=== PATIENT | male | born 1955 | race Caucasian/White ===

== ENCOUNTER 2016-09-25 16:56 | Emergency (ER) | payer BC, OTHER ==
[~2016-09-25] VITALS: Ht 165.1 cm; Wt 92.5 kg
[~2016-09-25 16:56] MED LIST: CIPR500T4 PO; FURO-109 PO; LACT20SO12 PO; PANT40TA4 PO; RIFA550T4 PO; SPIR50TA PO
[2016-09-25 17:01] VITALS: Ht 165.1 cm; Wt 92.5 kg
--- NOTE | 2016-09-25 18:50 | RADRPT ---
PROCEDURE: XR Chest. CLINICAL INDICATION: Abdominal pain. TECHNIQUE: Portable AP semi erect view of the chest was obtained. COMPARISON: None. FINDINGS: The cardiomediastinal silhouette is within normal limits. The lungs are clear. There is no evidenc e for pleural effusion, pneumothorax or pulmonary vascular congestion. The osseous structures are i ntact with no evidence for acute abnormality. No free air seen below the diaphragm RPTAT:HJJR IMPRESSION: No evidence for acute intrathoracic pathology. Physician Tyson Date Time Electronically viewed and signed by Ulices Esteban Physician on 09/25/2016 18:50 JR/
[2016-09-25 19:03] LABS: ADD SCAN DIFF NO
[2016-09-25 19:06] LABS: ABNORMAL IP MESSAGE 1; HEMATOCRIT 29.9 % (42.0-52.0); HEMOGLOBIN 10.5 g/dl (14.0-18.0); MEAN CORPUSCULAR HEMOGLOBIN 32.1 pg (29.0-33.0); MEAN CORPUSCULAR HGB CONC 35.1 g/dl (32.0-37.0); MEAN CORPUSCULAR VOLUME 91.4 fl (82.0-101.0); MEAN PLATELET VOLUME 12.5 fl (7.4-10.4); PLATELET COUNT 86 10^3/UL (140-415); RED BLOOD COUNT 3.27 10^6/ul (4.70-6.10); RED CELL DISTRIBUTION WIDTH 16.1 % (11.5-14.5); WHITE BLOOD COUNT 7.3 10^3/ul (4.8-10.8)
[2016-09-25 19:14] LABS: ALBUMIN 3.1 g/dl (3.3-4.9)
[2016-09-25 19:15] LABS: CHLORIDE 104 mmol/L (97-110); POTASSIUM 3.7 mmol/L (3.5-5.1); SODIUM 140 mmol/L (135-144)
[2016-09-25 19:16] LABS: INR 1.7; PROTIME 20.1 Sec (12.2-14.2); PT RATIO 1.6
[2016-09-25 19:17] LABS: ALBUMIN/GLOBULIN RATIO 0.81; ASPARTATE AMINO TRANSFERASE 221 IU/L (15-46); CARBON DIOXIDE 21 mmol/L (21-31); CREATININE 0.87 mg/dl (0.61-1.24); TOTAL PROTEIN 6.9 g/dl (6.1-8.1)
[2016-09-25 19:18] LABS: ALANINE AMINOTRANSFERASE 80 IU/L (13-69); ALKALINE PHOSPHATASE 205 IU/L (42-121); ANION GAP 19 (8-16); BLOOD UREA NITROGEN 10 mg/dl (7-20); CALCIUM 8.3 mg/dl (8.4-10.2); GLUCOSE 100 mg/dl (70-220)
[2016-09-25] MEDS ORDERED: LACTULOSE 30ML CUP PO ONE (19:30)
[2016-09-25 19:33] LABS: TROPONIN-I < 0.012 ng/ml (0.00-0.12)
[2016-09-25 19:38] LABS: ADD UMIC NO; URINE BILIRUBIN (Dip) NEGATIVE (NEGATIVE); URINE BLOOD (Dip) NEGATIVE (NEGATIVE); URINE COLOR LT. YELLOW (YELLOW); URINE GLUCOSE (Dip) NEGATIVE (NEGATIVE); URINE KETONES (Dip) NEGATIVE (NEGATIVE); URINE LEUKOCYTE ESTERASE (Dip) NEGATIVE (NEGATIVE); URINE NITRITE (Dip) NEGATIVE (NEGATIVE); URINE TOTAL PROTEIN (Dip) NEGATIVE (NEGATIVE); URINE UROBILINOGEN (Dip) 0.2 E.U./dL (0.1-1.0)
--- NOTE | 2016-09-25 19:46 | ERD ---
ER Documentation Chief Complaint Date/Time DATE: 09/25/16 TIME: 19:40 Chief Complaint ap with diarrhea x 2 weeks, hx cirrrhosis HPI 61-year-old man with a history of alcoholic cirrhosis and ascites presents with increasing abdominal distention. He's had intermittent loose stools as well but denies blood per rectum or melena. Symptoms present for about 2 weeks. He denies fevers or chills, no chest pain or shortness of breath, no vomiting, no headache or blurry vision. Patient admits to drinking alcohol today as he does every day. ROS All systems reviewed and are negative except as per history of present illness. Medications Home Meds Discontinued Scripts Spironolactone* (Aldactone*) 50 Mg Tab, 100 MG PO BID, #60 Prov:REGIDORMARK 07/10/14 Rifaximin* (Xifaxan*) 550 Mg Tablet, 550 MG PO BID, #60 Prov:REGIDORMARK 07/10/14 Pantoprazole (Protonix) 40 Mg Tabec, 40 MG PO DAILY@06, #30 Prov:REGIDORMARK 07/10/14 Lactulose* (Cephulac*) 20 Gm/30 Ml Soln, 10 GM PO Q12, #60 Prov:REGIDORMARK 07/10/14 Furosemide* (Lasix*) 40 Mg Tab, 40 MG PO DAILY, #30 Prov:REGIDOR,MARK 07/10/14 Ciprofloxacin Hcl* (Ciprofloxacin Hcl*) 500 Mg Tab, 500 MG PO BID@06,18, #10 Prov:REGAPRILRMARK 07/10/14 Allergies Allergies: Coded Allergies: No Known Allergy (Unverified , 09/25/16) PMhx/Soc Alcoholism, alcoholic cirrhosis, ascites, hypertension, CHF, history of pancreatitis History of Surgery: No Anesthesia Reaction: No Hx Neurological Disorder: No Hx Respiratory Disorders: No Hx Cardiac Disorders: Yes (HTN) Hx Psychiatric Problems: No Hx Miscellaneous Medical Probl: Yes (GERD, HTN, LE edema) Hx Alcohol Use: Yes (WEEKLY) Hx Substance Use: No Hx Tobacco Use: No Smoking Status: Never smoker FmHx Family History: No diabetes Physical Exam Vitals Vital Signs Date Time Temp Pulse Resp B/P Pulse Ox O2 Delivery O2 Flow Rate FiO2 09/25/16 18:30 98.1 89 18 118/66 100 Room Air 09/25/16 17:01 98.1 92 18 128/80 99 Physical Exam GENERAL: Well-developed, well-nourished, well-hydrated, in no apparent distress , looks nontoxic in appearance HEENT: Moist mucous membranes, pink conjunctiva, no cervical spine tenderness or step-off deformities, no goiter, no jaundice or icterus, extraocular movements intact without pain. No submandibular induration, and no pharyngeal erythema NEURO: Alert and oriented 3, cranial nerves II through XII intact bilaterally, pupils equal round reactive to light, no focal deficits or facial asymmetry, sensation intact distally Strength 5/5 in upper and lower extremities bilaterally CARDIAC: Regular rate and rhythm, no murmurs rubs or gallops LUNGS: Clear bilaterally no wheezing crackles or stridor ABDOMEN: Soft nontender, non-protuberant, nontender abdomen which does not appear or feel distended. No guarding or rigidity SKIN: Warm and dry to touch, no abrasions, contusions, or hematomas, no lacerations, no ecchymosis, no target lesions, and without ulcers EXTREMITIES: No clubbing cyanosis or edema, calves are bilaterally symmetrical, no Homans sign, no popliteal cord sign. Distal pulses equal and bilateral PSYCH: Normal affect without agitation or irritability Result Diagram: 09/25/16184909/25/161849 Results 24 hrs Laboratory Tests Test 09/25/16 18:50 White Blood Count 7.310^3/ul Red Blood Count 3.2710^6/ul Hemoglobin 10.5g/dl Hematocrit 29.9% Mean Corpuscular Volume 91.4fl Mean Corpuscular Hemoglobin 32.1pg Mean Corpuscular Hemoglobin Concent 35.1g/dl Red Cell Distribution Width 16.1% Platelet Count 8610^3/UL Mean Platelet Volume 12.5fl Prothrombin Time 20.1Sec Prothrombin Time Ratio 1.6 INR International Normalized Ratio 1.70 Sodium Level 140mmol/L Potassium Level 3.7mmol/L Chloride Level 104mmol/L Carbon Dioxide Level 21mmol/L Anion Gap 19 Blood Urea Nitrogen 10mg/dl Creatinine 0.87mg/dl Glucose Level 100mg/dl Calcium Level 8.3mg/dl Total Bilirubin 1.0mg/dl Direct Bilirubin 0.00mg/dl Indirect Bilirubin 1.0mg/dl Aspartate Amino Transf (AST/SGOT) 221IU/L Alanine Aminotransferase (ALT/SGPT) 80IU/L Alkaline Phosphatase 205IU/L Ammonia 83umol/l Troponin I < 0.012ng/ml Total Protein 6.9g/dl Albumin 3.1g/dl Globulin 3.80g/dl Albumin/Globulin Ratio 0.81 Lipase Pending Current Medications Medications (Trade) Dose Ordered Sig/Nilo Route PRN Reason Start Time Stop Time Status Last Admin Dose Admin Lactulose (Enulose) 20 gm ONCE ONCE PO 09/25/16 19:30 09/25/16 19:31 DC Procedures/MDM CBC reveals mild anemia with a hemoglobin of 11, electrolytes were unremarkable , liver function tests revealed mild transaminitis, lipase normal, ammonia elevated at 83. Urinalysis was negative for infection. Coagulation profile reveals an INR of 1.7 and elevated consistent with his history. I administered 20 g lactulose by mouth which she tolerated all the patient's neurologic exam is within normal limits and patient is not confused or disoriented. EKG performed, read by me: 89 bpm, normal sinus rhythm, normal axis, no acute ST segment changes, narrow QRS complex, with good R-wave progression in precordial leads. Chest X-ray 1V Interpreted by me: Soft Tissue: No acute abnormalities Bones: No acute abnormalities Mediastinum/Cardiac Silhouette/Lungs: No acute abnormalities Patient was treated here for hyperammonemia and I discharged him with a prescription for lactulose to use daily it. Patient does not require emergent paracentesis although he may find symptomatic improvement so I recommended he follow-up with his PMD to schedule outpatient paracentesis or return here in 1- 2 days for reevaluation and possible paracentesis. Differential diagnoses considered, included but not limited to acute coronary syndrome, pulmonary embolism, aortic dissection, abdominal aortic aneurysm, sepsis, stroke, meningitis, encephalitis, pneumonia, appendicitis, cholecystitis , bowel obstruction, pyelonephritis, nephrolithiasis, cystitis, as well as metabolic, hematologic, and electrolyte abnormalities. As well as abscess, cellulitis, fractures, and dislocations. Patient feels much better at this time, and vital signs are normal, symptoms have improved. I did give strict instructions to return to the ED if symptoms continue or worsen, patient will otherwise follow-up with primary care physician. Patient understood instructions and agreed to plan. Departure Diagnosis: Primary Impression: AA (alcohol abuse) Additional Impressions: Ascites Ascites type: other type Qualified Code: R18.8 - Other ascites Hyperammonemia Condition: Good Patient Instructions: Ascites, Alcohol Abuse TAMIKA LIRA MD Sep 25, 2016 19:46
[2016-09-25] MEDS ORDERED: LACT20SO2 PO (19:48)
[2016-09-25 20:10] LABS: BASOPHIL # 0.1 10^3/ul (0.0-0.1); EOSINOPHILS # 1.4 10^3/ul (0.0-0.5); LYMPHOCYTES # 2.5 10^3/ul (0.8-2.9); MONOCYTE # 0.4 10^3/ul (0.3-0.9); NEUTROPHIL # 2.8 10^3/ul (1.6-7.5); PLATELET ESTIMATE PLT APPEAR DECREASED
[2016-09-25 20:18] VITALS: BP 130/72; PULSE 85; RESP 18; TEMP 98.1
== END 2016-09-25 20:18 | disposition home or self-care (01) ==
LOC: E/R 16:56
DX: F10.10 Alcohol abuse, uncomplicated (principal); R18.8 Other ascites; E72.20 Disorder of urea cycle metabolism, unspecified; I10 Essential (primary) hypertension; I50.9 Heart failure, unspecified
CPT/HCPCS: 36415; 71010; 80053; 81003; 82140; 83690; 84484; 85025; 85610; 93005

== ENCOUNTER 2017-01-04 06:04 | Emergency (ER) | payer MEDICAID, OTHER ==
[~2017-01-04] VITALS: Ht 160 cm; Wt 89.5 kg
[~2017-01-04 06:04] MED LIST changes: -CIPR500T4 PO; -FURO-109 PO; -LACT20SO12 PO; +LACT20SO2 PO; -PANT40TA4 PO; -RIFA550T4 PO; -SPIR50TA PO
[2017-01-04 06:08] VITALS: Ht 160 cm; Wt 89.5 kg
--- NOTE | 2017-01-04 07:53 | RADRPT ---
PROCEDURE: Right knee series CLINICAL INDICATION: Pain TECHNIQUE: AP lateral and oblique views of the right knee were obtained COMPARISON: None FINDINGS: There is mild degenerative joint disease of the right knee. No evidence of acute fractures or dislo cations. The bony mineralization is normal. There are no focal bony blastic or lytic lesions. No evidence of a right knee joint effusion. IMPRESSION: Mild degenerative joint disease of the right knee without evidence of acute fracture dislocation or joint effusion. RPTAT:AAJJ Physician Anisha Date Time Electronically viewed and signed by Cooper Glez Physician on 01/04/2017 07:52 /
--- NOTE | 2017-01-04 07:55 | RADRPT ---
PROCEDURE: Left foot series CLINICAL INDICATION: Pain TECHNIQUE: AP lateral and oblique images of the left foot were obtained COMPARISON: None FINDINGS: There is mild degenerate joint disease left first metatarsal phalangeal joint. There is a tiny post erior plantar calcaneal spur. There is no evidence of acute fracture dislocation or erosion. The b brennon mineralization is normal without focal bony blastic or lytic lesions. Soft tissues are unremark able. IMPRESSION: 1. No evidence acute fracture or dislocation. 2. Degenerative changes as above. RPTAT:AAJJ Physician Anisha Date Time Electronically viewed and signed by Cooper Glez Physician on 01/04/2017 07:54 BM/
--- NOTE | 2017-01-04 07:56 | RADRPT ---
PROCEDURE: Bilateral ankle series CLINICAL INDICATION: Pain TECHNIQUE: AP and lateral views of the right and left ankles were obtained. COMPARISON: None FINDINGS: There is no evidence of acute fractures or dislocations. The bony mineralization is normal. There are no focal bony blastic or lytic lesions. There is a tiny posterior plantar are left calcaneal sp ur. Soft tissues are unremarkable. IMPRESSION: No evidence of acute fractures or dislocations bilaterally. RPTAT:AAJJ Physician Anisha Date Time Electronically viewed and signed by Physician Anisha on 01/04/2017 07:56 /
[2017-01-04] MEDS ORDERED: TRAM50TA2 PO (08:09)
[2017-01-04] MEDS ORDERED: NAPR-260 PO (08:16)
--- NOTE | 2017-01-04 08:57 | ERD ---
ER Documentation Chief Complaint Date/Time DATE: 01/04/17 TIME: 08:52 Chief Complaint maria fernanda leg pain with diff walking started yesterday (no swelling noted) HPI 17-year-old male patient with a past medical history of alcoholic cirrhosis presents to the ED complaining of bilateral knee, ankle, foot pain that started intermittently yesterday. States that he has been taking ibuprofen without relief of his symptoms. Reports that the pain feels achy and rates it a 7 out of 10. Reports that when he walks it makes the pain worse. States that the plantar surface of his bilateral feet is the most painful. States that he is taking HCTZ, famotidine and lisinopril. Denies any recent traveling. Denies any trauma. Denies any chest pain, wheezing, shortness of breath, abdominal pain, nausea, vomiting, loss of sensation, loss of range of motion, weakness. ROS All systems reviewed and are negative except as per history of present illness. Medications Home Meds Active Scripts Naproxen* (Naprosyn*) 500 Mg Tablet, 500 MG PO BID Y for PAIN AND/OR INFLAMMATION, #30 TAB take with food Prov:DARREN LUNA PA-C 01/04/17 Lactulose* (Lactulose*) 20 Gm/30 Ml Solution, 20 GM PO BID, #600 ML Prov:TAMIKA LIRA MD 09/25/16 Allergies Allergies: Coded Allergies: No Known Allergy (Unverified , 09/25/16) PMhx/Soc History of Surgery: No Anesthesia Reaction: No Hx Neurological Disorder: No Hx Respiratory Disorders: No Hx Cardiac Disorders: Yes (HTN) Hx Psychiatric Problems: No Hx Miscellaneous Medical Probl: Yes (GERD, HTN, LE edema) Hx Alcohol Use: Yes (WEEKLY) Hx Substance Use: No Hx Tobacco Use: No Smoking Status: Former smoker Physical Exam Vitals Vital Signs Date Time Temp Pulse Resp B/P Pulse Ox O2 Delivery O2 Flow Rate FiO2 01/04/17 06:08 98.1 69 20 132/60 96 Physical Exam Const: [id number]-paotxzdgo, well-nourished. In no acute distress. Head: Atraumatic, normocephalic Eyes: Normal Conjunctiva without injection ENT: Normal external ear, nose and mouth. Neck: Full range of motion. No meningismus. Resp: Clear to auscultation bilaterally. No wheezing, rhonchi, rales, or crackles. No accessory muscle use. No retractions. Cardio: Regular rate and rhythm, no murmurs Skin: No petechiae or rashes Back: No midline tenderness. No CVA tenderness. Ext: No cyanosis, or edema. Cap refill less than 2 seconds. Distal pulses intact bilaterally. Tenderness to palpation of the bilateral patella and left popliteal fossa, bilateral lateral malleolus and plantar surface of patient's bilateral feet. Full range of motion with flexion, extension with bilateral knees, ankles, feet. No palpable cords. No erythema or edema. No warmth to touch. Neur: Awake and alert. Normal gait and coordination. Muscle strength 5/5. Sensation intact bilaterally. Psych: Normal Mood and Affect Procedures/MDM This is a 61-year-old male patient with no significant past medical history presents to the ED complaining of bilateral knee, ankle, foot pain. Patient is afebrile and nontoxic-appearing. Patient has normal vital signs. A bilateral knee, ankle, foot x-ray was ordered to further evaluate patient. PROCEDURE: Bilateral ankle series CLINICAL INDICATION: Pain TECHNIQUE: AP and lateral views of the right and left ankles were obtained. COMPARISON: None FINDINGS: There is no evidence of acute fractures or dislocations. The bony mineralization is normal. There are no focal bony blastic or lytic lesions. There is a tiny posterior plantar are left calcaneal spur. Soft tissues are unremarkable. IMPRESSION: No evidence of acute fractures or dislocations bilaterally. PROCEDURE: Left foot series CLINICAL INDICATION: Pain TECHNIQUE: AP lateral and oblique images of the left foot were obtained COMPARISON: None FINDINGS: There is mild degenerate joint disease left first metatarsal phalangeal joint. There is a tiny posterior plantar calcaneal spur. There is no evidence of acute fracture dislocation or erosion. The bony mineralization is normal without focal bony blastic or lytic lesions. Soft tissues are unremarkable. IMPRESSION: 1. No evidence acute fracture or dislocation. 2. Degenerative changes as above. PROCEDURE: Right knee series CLINICAL INDICATION: Pain TECHNIQUE: AP lateral and oblique views of the right knee were obtained COMPARISON: None FINDINGS: There is mild degenerative joint disease of the right knee. No evidence of acute fractures or dislocations. The bony mineralization is normal. There are no focal bony blastic or lytic lesions. No evidence of a right knee joint effusion. IMPRESSION: Mild degenerative joint disease of the right knee without evidence of acute fracture dislocation or joint effusion. Patient has degenerative joint disease consistent with possible arthritis of the bilateral knees as well as feet noted to have degenerative changes. Patient is neurovascularly intact. Patient's extremity symptoms have stabilized while they have been evaluated in the department and are appropriate for outpatient follow up. No evidence of fractures, dislocations, compartment syndrome, neurologic injury, vascular injury, open joint, open fracture, tendon laceration, septic arthritis, osteomyelitis, DVT, foreign body, or other emergent conditions. Discharge medications: Naproxen Follow up with primary care physician in 1-2 days for referral to physical therapy. Instructed patient to return to the ED sooner for any worsening symptoms. Patient's questions were answered. Patient understood and agreed with discharge plan. Patient discharged stable. Departure Diagnosis: Primary Impression: Knee pain Laterality: bilateral Chronicity: unspecified Qualified Code: M25.561 - Pain in both knees, unspecified chronicity Additional Impressions: Foot pain Laterality: bilateral Qualified Code: M79.671 - Pain in both feet Ankle pain Laterality: bilateral Chronicity: unspecified Qualified Code: M25.571 - Bilateral ankle pain, unspecified chronicity Condition: Stable Patient Instructions: What Is Arthritis?, What Is Arthritis in the Foot?, Reducing Knee Pain and Swelling Referrals: [facility] 7 a.m.- 11 p.m. Every Day of the Week NO APPOINTMENT OR AUTHORIZATION NEEDED COMMUNITY CLINIC () Usted se [place] hecho un examen mdico de control que le indica que no est en cal condicin que requiera tratamiento urgente en el Departamento de Emergencia. Un estudio ms profundo y el tratamiento de huerta condicin pueden esperar sin ningn riesgo hasta que usted sea atendida/o en el consultorio de huerta mdico o cal cl ila. Es responsabilidad suya arreglar cal jayant para el seguimiento del andre. MANEJO DE CONDICIONES NO URGENTES EN EL FUTURO 1) Si usted tiene un mdico de atencin primaria: Usted debera llamar a huerta mdico de atencin primaria antes de venir al departamento de emergencia. Despus de las horas de consultorio, huerta doctor o huerta asociado/a est disponible por telfono. El mdico o enfermero de will en el servicio telefnico puede asesorarle por berhane medio para atender el problema, o andre contrario se puede programar cal jayant. 2) Si usted no tiene un mdico de atencin primaria: Llame al mdico o clnica de referencia que aparece abajo april las horas de consultorio para hacer cal jayant para que le vean. CLINICAS: [facility] [phone] [facility] [phone] [facility] [phone] [address] [facility]. [facility] [phone] [facility]. [place] [id number] [phone] [facility] [phone] [place] [facility] Hours: Mon-Fri 9:00 AM - 5:00 PM [facility] () Usted se [place] hecho un examen mdico de control que le indica que no est en cal condicin que requiera tratamiento urgente en el Departamento de Emergencia. Un estudio ms profundo y el tratamiento de huerta condicin pueden esperar sin ningn riesgo hasta que usted sea atendida/o en el consultorio de huerta mdico o cal cl ila. Es responsabilidad suya arreglar cal jayant para el seguimiento del andre. MANEJO DE CONDICIONES NO URGENTES EN EL FUTURO 1) Si usted tiene un mdico de atencin primaria: Usted debera llamar a huerta mdico de atencin primaria antes de venir al departamento de emergencia. Despus de las horas de consultorio, huerta doctor o huerta asociado/a est disponible por telfono. El mdico o enfermero de will en el servicio telefnico puede asesorarle por berhane medio para atender el problema, o andre contrario se puede programar cal jayant. 2) Si usted no tiene un mdico de atencin primaria: Llame al mdico o condado institucions de referencia que aparece abajo april las horas de consultorio para hacer cal jayant para que le vean. SI USTED NO PUEDE PAGAR PARA ABDULKADIR UN MEDICO puede ir a: [facility] [address] [place] [address] [facility] [address] [place] [address] [facility] [address] [place] [address] [facility] [address] [place], [place] [id number] Additional Instructions: Llame al doctor MAANA y linus cal JAYANT PARA DENTRO DE 1-2 RAMOS para cal derivaci n a terapia fsica.Dgale a la secretaria que nosotros le instruimos hacer esta jayant.Avise o llame si huerta condicin se empeora antes de la jayant. Regresa aqui si peor o no mejor. DARREN LUNA PA-C Jan 04, 2017 08:57 DARREN LUNA PA-C Jan 04, 2017 08:57
== END 2017-01-04 08:22 | disposition home or self-care (01) ==
LOC: FTE 06:04
DX: M25.561 Pain in right knee (principal); M25.562 Pain in left knee; M25.571 Pain in right ankle and joints of right foot; M25.572 Pain in left ankle and joints of left foot; M79.605 Pain in left leg; I10 Essential (primary) hypertension; Z87.891 Personal history of nicotine dependence

== ENCOUNTER 2017-05-05 13:40 | Emergency (ER) | payer OTHER ==
[~2017-05-05] VITALS: Ht 172.7 cm; Wt 103.0 kg
[~2017-05-05 13:40] MED LIST changes: +NAPR-260 PO
[2017-05-05 13:47] VITALS: Ht 172.7 cm; Wt 103.0 kg
--- NOTE | 2017-05-05 21:40 | ERD ---
ER Documentation Chief Complaint Chief Complaint pt bib self with c/o bilatter leg swelling HPI This is a 62-year-old male with a past medical history of alcoholic cirrhosis, ascites requiring previous paracenteses who is presenting with progressive abdominal distention and bilateral lower extremity swelling for 1 week. The patient does not endorse abdominal pain, but he has stated that the distention has become uncomfortable. He does not endorse any shortness of breath at this time. The patient also notes that his legs feel very tight, which is uncomfortable as well. It is also quite uncomfortable to walk. The patient denies feeling sick recently. The patient denies fever or chills. The patient has had no headache or vision changes. The patient does not endorse neck or back pain. The patient denies lightheadedness or dizziness. The patient has had no chest pain or shortness of breath or trouble breathing. The patient denies nausea or vomiting. The patient denies changes to bowel movements or urination. The patient has had no focal deficits. The patient has had no weakness or numbness or tingling to the face or extremities. ROS All systems reviewed and are negative except as per history of present illness. Medications Home Meds Active Scripts Naproxen* (Naprosyn*) 500 Mg Tablet, 500 MG PO BID Y for PAIN AND/OR INFLAMMATION, #30 TAB take with food Prov:DARREN LUNA PA-C 01/04/17 Lactulose* (Lactulose*) 20 Gm/30 Ml Solution, 20 GM PO BID, #600 ML Prov:TAMIKA LIRA MD 09/25/16 Allergies Allergies: Coded Allergies: No Known Allergy (Unverified , 09/25/16) PMhx/Soc History of Surgery: No Anesthesia Reaction: No Hx Neurological Disorder: No Hx Respiratory Disorders: No Hx Cardiac Disorders: No Hx Psychiatric Problems: No Hx Miscellaneous Medical Probl: Yes (ARTHRITIS, Alcoholic Liver disease, Ascites) Hx Alcohol Use: Yes (DRINKS EVERY OTHER DAY) Hx Substance Use: No Hx Tobacco Use: No Smoking Status: Never smoker FmHx Family History: No diabetes Physical Exam Vitals Vital Signs Date Time Temp Pulse Resp B/P Pulse Ox O2 Delivery O2 Flow Rate FiO2 05/06/17 00:29 98.7 89 20 144/72 100 Room Air 05/05/17 21:53 Nasal Cannula 2 05/05/17 13:47 97.6 84 18 154/78 97 Physical Exam Const: No apparent distress, well-developed, well-nourished Head: Normocephalic, Atraumatic Eyes: Normal Conjunctiva. Extraocular movements intact. Pupils equal, round and reactive to light ENT: Normal External Ears, Nose and Mouth. Neck: Full range of motion. No meningismus. Resp: Clear to auscultation bilaterally, No wheezes, rales or rhonchi Cardio: Regular rate and rhythm. No murmurs, rubs or gallops Abd: Soft, non tender, non distended. Normal bowel sounds Skin: No petechiae or rashes Back: No midline tenderness. No CVA tenderness Ext: No cyanosis, bilateral nonpitting lower extremity edema Neur: Awake and alert, oriented 4. Cranial nerves intact. No facial droop. Normal strength, sensation and coordination. Psych: Normal Mood and Affect Result Diagram: 05/05/17219905/05/172199 Results 24 hrs Laboratory Tests Test 05/05/17 22:00 White Blood Count 3.510^3/ul Red Blood Count 2.8610^6/ul Hemoglobin 8.8g/dl Hematocrit 25.8% Mean Corpuscular Volume 90.2fl Mean Corpuscular Hemoglobin 30.8pg Mean Corpuscular Hemoglobin Concent 34.1g/dl Red Cell Distribution Width 18.3% Platelet Count 6710^3/UL Mean Platelet Volume 11.1fl Neutrophils % % Segmented Neutrophils % (Manual) 36% Band Neutrophils % (Manual) 2% Lymphocytes % % Lymphocytes % (Manual) 50% Monocytes % % Monocytes % (Manual) 5% Eosinophils % % Eosinophils % (Manual) 5% Basophils % % Basophils % (Manual) 2% Nucleated Red Blood Cells % 0.0/100WBC Neutrophils # 10^3/ul Neutrophils # (Manual) 1.310^3/ul Band Neutrophils # 0.010^3/ul Absolute Lymphocytes (Manual) 1.710^3/ul Lymphocytes # 10^3/ul Monocytes # 10^3/ul Absolute Monocytes (Manual) 0.110^3/ul Eosinophils # 10^3/ul Basophils # 10^3/ul Basophils # (Manual) 0.010^3/ul Nucleated Red Blood Cells # 10^3/ul Platelet Estimate DECREASED Giant Platelets 2% Hypochromasia 2+ Anisocytosis 3+ Macrocytosis 3+ Prothrombin Time 16.4Sec Prothrombin Time Ratio 1.3 INR International Normalized Ratio 1.31 Sodium Level 140mmol/L Potassium Level 3.6mmol/L Chloride Level 107mmol/L Carbon Dioxide Level 24mmol/L Anion Gap 13 Blood Urea Nitrogen 13mg/dl Creatinine 0.95mg/dl Glucose Level 84mg/dl Calcium Level 8.4mg/dl Total Bilirubin 1.2mg/dl Direct Bilirubin 0.00mg/dl Indirect Bilirubin 1.2mg/dl Aspartate Amino Transf (AST/SGOT) 82IU/L Alanine Aminotransferase (ALT/SGPT) 40IU/L Alkaline Phosphatase 146IU/L B-Type Natriuretic Peptide 468PG/ML Total Protein 6.6g/dl Albumin 2.8g/dl Globulin 3.80g/dl Albumin/Globulin Ratio 0.73 Procedures/MDM MDM The patient's presentation warrants further investigation. The patient shows signs of third spacing related to his liver disease. Blood work will be obtained to evaluate for any other etiologies as well as evaluate the current status of his liver disease. I will perform a bedside ultrasound to evaluate for ascites and the need for possible paracentesis. LABS The patient's blood work was obtained and reviewed. The patient's CBC shows no leukocytosis and no left shift. He actually has a mild leukopenia. The patient is afebrile and does not appear systemically ill. I do not suspect a systemic infection. The patient is anemic today, which is likely attributed to hepatosplenomegaly and splenic sequestration of the red blood cells. This is likely an anemia of chronic disease as well as this is a normocytic anemia. The patient's platelet count is also low, which does correlate with splenic sequestration from his liver disease resulting in splenomegaly. The patient's BMP shows no signs of metabolic or electrolyte emergencies. The patient has unremarkable renal function testing. The patient's LFTs are actually improved from previous studies, but he does have transaminitis, including a 2-1 ratio of AST to ALT, which does correlate with alcohol abuse. He does have a mild elevation of indirect bilirubin, which correlates with possible hemolysis relating to his disease process. I do not see evidence of an obstructive biliary process. The patient is not confused. He is not jaundiced. I do not see evidence of encephalopathy, and I do not feel that an ammonia level is indicated at this time. A BMP was sent off to evaluate for possible heart failure as the cause of his etiology. The BNP was in an indeterminate range, but I have lower suspicion for this. The patient's coags are unremarkable. EKG EKG read by me: Rate/Rhythm: Regular rate and rhythm at a rate of 75bpm Intervals: Normal [place]: Normal Impression: No evidence of ischemia or arrhythmia IMAGING CXR FINDINGS: The heart and mediastinum are within normal limits. The lungs are clear. There is no pleural effusion or pneumothorax. Degenerative changes of the shoulder joints are present. IMPRESSION: No acute cardiopulmonary disease. Electronically viewed and signed by Elie Cazares Physician on 05/05/2017 22:53 LIMITED BEDSIDE US ABD Performed by me Intra-abdominal free fluid, consistent with ascites TREATMENT/DISPOSITION The patient has sequela of liver disease including ascites and 1+ pitting edema to the lower extremities. He does not appear to be in any distress and he has normal vital signs. I do not feel that a bedside paracentesis is required emergently. Unfortunately our interventional radiology staff is not present in the hospital at this time. The patient will be instructed to follow-up with his doctor who may refer him to a knitted cloth examiner. If he feels that his abdominal distention gets worse, he may return to the emergency department for evaluation of a paracentesis at that time. The patient's INR is unremarkable. He does have a thrombocytopenia, but he does not have any evidence of bleeding at this time. He also has a mild leukopenia and anemia. I do not see any evidence of infection. 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 At this time, I feel that the patient stable for discharge. The patient will need follow-up with his primary care physician in 2-3 days. The patient will be given strict precautions with which to return to the emergency department. The patient's blood pressure was elevated at greater than 120/80 while in the emergency department. The patient was otherwise stable with no evidence of hypertensive urgency or emergency. The patient will require reevaluation of his blood pressure in 2-3 days, but this may be completed by a primary care physician as an outpatient. He does not require admission for blood pressure control. Departure Diagnosis: Primary Impression: Alcoholic liver disease Additional Impressions: Bilateral lower extremity edema Ascites Ascites type: due to alcoholic cirrhosis Qualified Code: K70.31 - Ascites due to alcoholic cirrhosis Thrombocytopenia Anemia Anemia type: other cause Other causes of anemia: chronic disease, other Qualified Code: D63.8 - Anemia in other chronic diseases classified elsewhere Leukopenia Leukopenia type: lymphocytopenia Qualified Code: D72.810 - Lymphocytopenia Transaminitis Indirect hyperbilirubinemia Condition: JOSE MANUEL Ware MD May 05, 2017 21:40
[2017-05-05 22:27] LABS: ABNORMAL IP MESSAGE 1; HEMATOCRIT 25.8 % (42.0-52.0); HEMOGLOBIN 8.8 g/dl (14.0-18.0); MEAN CORPUSCULAR HEMOGLOBIN 30.8 pg (29.0-33.0); MEAN CORPUSCULAR HGB CONC 34.1 g/dl (32.0-37.0); MEAN CORPUSCULAR VOLUME 90.2 fl (82.0-101.0); MEAN PLATELET VOLUME 11.1 fl (7.4-10.4); PLATELET COUNT 67 10^3/UL (140-415); POSITIVE DIFF @See below; RED BLOOD COUNT 2.86 10^6/ul (4.70-6.10); RED CELL DISTRIBUTION WIDTH 18.3 % (11.5-14.5); WHITE BLOOD COUNT 3.5 10^3/ul (4.8-10.8)
[2017-05-05 22:52] LABS: ALBUMIN 2.8 g/dl (3.3-4.9); ALBUMIN/GLOBULIN RATIO 0.73; BILIRUBIN,INDIRECT 1.2 mg/dl (0-1.1); BILIRUBIN,TOTAL 1.2 mg/dl (0.2-1.3); CALCIUM 8.4 mg/dl (8.4-10.2); CREATININE 0.95 mg/dl (0.61-1.24); POTASSIUM 3.6 mmol/L (3.5-5.1); TOTAL PROTEIN 6.6 g/dl (6.1-8.1)
--- NOTE | 2017-05-05 22:53 | RADRPT ---
PROCEDURE: XR Chest. CLINICAL INDICATION: Chest Pain. TECHNIQUE: Single frontal view of the chest was obtained COMPARISON: None FINDINGS: The heart and mediastinum are within normal limits. The lungs are clear. There is no pleural effusion or pneumothorax. Degenerative changes of the shoulder joints are present. IMPRESSION: 1. No acute cardiopulmonary disease. RPTAT:AAJJ Physician Susan Date Time Electronically viewed and signed by Elie Cazares Physician on 05/05/2017 22:53 QL/
[2017-05-05 23:08] LABS: ANISOCYTOSIS 3+ (0-0); BASOPHILS % (M) 2 % (0-2); EOSINOPHILS % (M) 5 % (0-7); GIANT THROMBO% (M) 2 % (0-0); HYPOCHROMASIA 2+ (0-0); MONOCYTES % (M) 5 % (0-11); PLATELET ESTIMATE DECREASED
[2017-05-06 00:26] LABS: INR 1.31; PROTIME 16.4 Sec (12.2-14.2); PT RATIO 1.3
[2017-05-06 00:29] VITALS: BP 144/72; PULSE 89; RESP 20; TEMP 98.7
== END 2017-05-06 00:55 | disposition home or self-care (01) ==
LOC: E/R 13:40
DX: K70.31 Alcoholic cirrhosis of liver with ascites (principal); D72.810 Lymphocytopenia; R74.0 Nonspecific elevation of levels of transaminase and lactic acid dehydrogenase [LDH]; R40.2142 Coma scale, eyes open, spontaneous, at arrival to emergency department; R40.2252 Coma scale, best verbal response, oriented, at arrival to emergency department; R40.2362 Coma scale, best motor response, obeys commands, at arrival to emergency department; R06.02 Shortness of breath; D63.8 Anemia in other chronic diseases classified elsewhere; E03.9 Hypothyroidism, unspecified
CPT/HCPCS: 36415; 71010; 80053; 83880; 85025; 85610; Z7502; Z7610; 93005

== ENCOUNTER 2018-05-06 15:47 | Emergency (ER) | END 2018-05-06 19:01 | disposition left against medical advice (07) ==

== ENCOUNTER 2018-05-07 08:02 | Emergency (ER) | END 2018-05-07 12:15 | disposition home or self-care (01) ==

== ENCOUNTER 2018-05-15 07:51 | Emergency (ER) | END 2018-05-15 10:59 | disposition home or self-care (01) ==

== ENCOUNTER 2018-05-23 08:53 | Inpatient (IN) | END 2018-05-26 14:10 | disposition home or self-care (01) | DRG 432 ==

== ENCOUNTER 2018-06-05 10:34 | Emergency (ER) | END 2018-06-05 18:34 | disposition home or self-care (01) ==

== ENCOUNTER 2018-06-14 05:35 | Emergency (ER) | END 2018-06-14 10:30 | disposition home or self-care (01) ==

== ENCOUNTER 2018-06-24 06:29 | Emergency (ER) | payer OTHER ==
[~2018-06-24] VITALS: Ht 170.2 cm; Wt 86.2 kg
[~2018-06-24 06:29] MED LIST changes: +ACET325T33 PO; +FURO-109 PO; +FURO40TA4 PO; +IBUP-1542 PO; +LISI-471 PO; +MIDO5TAB GTB; -NAPR-260 PO; +TRAM50TA PO; +TRAM50TA2 PO
[2018-06-24 06:32] VITALS: Ht 170.2 cm; Wt 86.2 kg
[2018-06-24] MEDS ORDERED: LIDOCAINE 1% (MPF) 5 ML VIAL ONE (11:37)
--- NOTE | 2018-06-24 11:38 | NUR ---
ULTRASOUND GUIDED PARACENTESIS PERFORMED BY DR. JEFFERSON WALKER. 5000 ML OF ASCITES FLUID ASPIRATED AND FLUID DISCARDED. NO MD ORDER. PATIENT TOLERATED PROCEDURE WELL.
--- NOTE | 2018-06-24 12:06 | ERD ---
ER Documentation Chief Complaint Chief Complaint abdominal pain,distention.hx liver cirrhosis.had paracentesis 10 days ago HPI This is a 63-year-old male who is well-known to [facility] [place] who presents for request for paracentesis, for therapeutic reasons, secondary to nondistention and pain. Last paracentesis was performed 10 days ago. Patient denies fever, no chest pain or shortness of breath, there are no alleviating or aggravating factors. ROS All systems reviewed and are negative except as per history of present illness. Medications Home Meds Active Scripts Lactulose* (Lactulose*) 10 Gm/15 Ml Solution, 10 GM PO Q6 for 30 Days, ML Prov:TAMIKA SINGH MD 06/24/18 Furosemide* (Lasix*) 40 Mg Tablet, 40 MG PO DAILY, #20 TAB Prov:TAMIKA SINGH MD 06/24/18 Tramadol HCl (Tramadol HCl) 50 Mg Tablet, 50 MG PO Q8, #20 TAB Prov:FARHAD JORDANSTOLOS AKwaku DO 06/14/18 Furosemide* (Lasix*) 40 Mg Tablet, 40 MG PO DAILY, #20 TAB Prov:LEKKOSAPOSTOLOS A. DO 06/14/18 Lactulose* (Lactulose*) 20 Gm/30 Ml Solution, 20 GM PO TID, #473 ML Prov:NIKKIAPOSTOLOS A. DO 06/14/18 Midodrine* (Midodrine*) 5 Mg Tablet, 5 MG GTB BID, #14 TAB Prov:RADHA MCNAIR. 05/26/18 Lactulose* (Lactulose*) 20 Gm/30 Ml Solution, 20 GM PO QID, #3600 ML 1 Refill Prov:RADHA MCNAIR. 05/26/18 Furosemide* (Furosemide*) 40 Mg Tablet, 40 MG PO DAILY, #30 TAB Prov:RADHA MCNAIR. 05/26/18 Reported Medications Tramadol Hcl* (Ultram*) 50 Mg Tablet, 50 MG PO Q8, TAB 06/14/18 Ibuprofen* (Ibuprofen*) 600 Mg Tablet, 600 MG PO Q6H, TAB 06/05/18 Acetaminophen* (Tylenol*) 325 Mg Tablet, 325 MG PO Q4H PRN for PAIN AND OR ELEVATED TEMP, TAB 06/05/18 Lisinopril* (Lisinopril*) 20 Mg Tablet, 20 MG PO BID, #30 TAB 06/05/18 Allergies Allergies: Coded Allergies: No Known Allergy (Unverified , 06/24/18) PMhx/Soc History of Surgery: No Anesthesia Reaction: No Hx Neurological Disorder: No Hx Respiratory Disorders: No Hx Cardiac Disorders: Yes (HYPERTENSION) Hx Psychiatric Problems: No Hx Miscellaneous Medical Probl: No (CIRRHOSIS, ASCITES, ARTHRITIS) Hx Alcohol Use: Yes (QUIT 01/2018) Hx Substance Use: No Hx Tobacco Use: Yes Physical Exam Vitals Vital Signs Date Temp Pulse Resp B/P (MAP) Pulse Ox O2 O2 Flow FiO2 Time Delivery Rate 06/24/18 98.0 79 18 116/57 99 Room Air 12:40 (76) 06/24/18 97.0 90 18 124/68 100 06:32 (86) Physical Exam Const: No acute distress Head: Atraumatic Eyes: Normal Conjunctiva ENT: Normal External Ears, Nose and Mouth. Neck: Full range of motion. No meningismus. Resp: Clear to auscultation bilaterally Cardio: Regular rate and rhythm, no murmurs Abd: Abdominal distention, mild tenderness, no rebound or guarding Skin: No petechiae or rashes Back: No midline or flank tenderness Ext: No cyanosis, or edema Neur: Awake and alert Psych: Normal Mood and Affect Results 24 hrs Current Medications Medications Dose Sig/Nilo Start Time Status Last (Trade) Ordered Route PRN Stop Time Admin Dose Reason Admin Lidocaine 5 ml STK-MED 06/24/18 DC (Xylocaine ONCE .ROUTE 11:37 06/24/18 1% (Mpf)) 11:38 Procedures/MDM Is a 63-year-old male with alcoholic cirrhosis, well-known to this facility who presents with request for paracentesis. 5 L were removed without complication, state patient is now stable for discharge home, strict return precautions given at this time I do not suspect spontaneous bacterial peritonitis, at discharge she was in no acute distress. Departure Diagnosis: Primary Impression: Abdominal pain Abdominal location: unspecified location Qualified Codes: R10.9 - Unspecified abdominal pain Additional Impression: Cirrhosis Hepatic cirrhosis type: unspecified hepatic cirrhosis Ascites presence: unspecified Qualified Codes: K74.60 - Unspecified cirrhosis of liver Condition: Stable TAMIKA SINGH MD Jun 24, 2018 12:06
[2018-06-24] MEDS ORDERED: LACT10SO5 PO (12:12)
[2018-06-24] MEDS ORDERED: FURO-109 PO (12:12)
[2018-06-24 12:40] VITALS: BP 116/57; PULSE 79; RESP 18
== END 2018-06-24 12:50 | disposition home or self-care (01) ==
LOC: E/R 06:29
DX: K74.60 Unspecified cirrhosis of liver (principal); I10 Essential (primary) hypertension; Z87.891 Personal history of nicotine dependence
CPT/HCPCS: Z7502; Z7610

== ENCOUNTER 2018-06-30 05:39 | Emergency (ER) | payer OTHER ==
[~2018-06-30] VITALS: Wt 82.8 kg
[~2018-06-30 05:39] MED LIST changes: +LACT10SO5 PO
[2018-06-30] MEDS ORDERED: FURO40TA4 PO (06:59)
--- NOTE | 2018-06-30 07:23 | ERD ---
ER Documentation Chief Complaint Chief Complaint ASCITES HPI This is a 63-year-old male with a history of liver cirrhosis secondary to alcohol disease. The patient had no fevers or shaking or chills. He denies any shortness of breath. He said no hemoptysis hematemesis or melanotic stools. Patient indicates his last paracentesis was roughly 8 days prior to arrival. He denies any chest pain. He has no shortness of breath at rest or exertion. ROS All systems reviewed and are negative except as per history of present illness. Medications Home Meds Active Scripts Midodrine* (Midodrine*) 5 Mg Tablet, 5 MG GTB BID, #14 TAB Prov:MAURO MCNAIRMayte Davison 05/26/18 Reported Medications Furosemide* (Furosemide*) 40 Mg Tablet, 40 MG PO DAILY, TAB 06/30/18 Tramadol Hcl* (Ultram*) 50 Mg Tablet, 50 MG PO Q8, TAB 06/14/18 Acetaminophen* (Tylenol*) 325 Mg Tablet, 325 MG PO Q4H PRN for PAIN AND OR ELEVATED TEMP, TAB 06/05/18 Lisinopril* (Lisinopril*) 20 Mg Tablet, 20 MG PO BID, #30 TAB 06/05/18 Discontinued Reported Medications Ibuprofen* (Ibuprofen*) 600 Mg Tablet, 600 MG PO Q6H, TAB 06/05/18 Discontinued Scripts Lactulose* (Lactulose*) 10 Gm/15 Ml Solution, 10 GM PO Q6 for 30 Days, ML Prov:TAMIKA SINGH MD 06/24/18 Furosemide* (Lasix*) 40 Mg Tablet, 40 MG PO DAILY, #20 TAB Prov:TAMIKA SINGH MD 06/24/18 Tramadol HCl (Tramadol HCl) 50 Mg Tablet, 50 MG PO Q8, #20 TAB Prov:YOVANYOS,APOSTOLOS A. DO 06/14/18 Furosemide* (Lasix*) 40 Mg Tablet, 40 MG PO DAILY, #20 TAB Prov:LEKKOS,APOSTOLOS A. DO 06/14/18 Lactulose* (Lactulose*) 20 Gm/30 Ml Solution, 20 GM PO TID, #473 ML Prov:LEKKOS,APOSTOLOS A. DO 06/14/18 Lactulose* (Lactulose*) 20 Gm/30 Ml Solution, 20 GM PO QID, #3600 ML 1 Refill Prov:RADHA MCNAIR. 05/26/18 Furosemide* (Furosemide*) 40 Mg Tablet, 40 MG PO DAILY, #30 TAB Prov:RADHA MCNAIR. 05/26/18 Allergies Allergies: Coded Allergies: No Known Allergy (Unverified , 06/24/18) PMhx/Soc History of Surgery: No Anesthesia Reaction: No Hx Neurological Disorder: No Hx Respiratory Disorders: No Hx Cardiac Disorders: Yes (HYPERTENSION) Hx Psychiatric Problems: No Hx Miscellaneous Medical Probl: No (CIRRHOSIS, ASCITES, ARTHRITIS) Hx Alcohol Use: Yes (QUIT 01/2018) Hx Substance Use: No Hx Tobacco Use: Yes Smoking Status: Current every day smoker Physical Exam Vitals Vital Signs Date Temp Pulse Resp B/P (MAP) Pulse Ox O2 O2 Flow FiO2 Time Delivery Rate 06/30/18 97.6 92 18 140/67 100 05:47 (91) Physical Exam Constitutional:Well-developed. Well-nourished. HEENT:Normocephalic. Atraumatic.Pupils were equal round reactive to light. Very dry mucous membranes.No tonsillar exudates. Neck: No nuchal rigidity. No lymphadenopathy. No posterior cervical spine tenderness or step-offs. Respiratory: Not using accessory muscles of respiration.Lungs were clear to auscultation bilaterally. No rhonchi. No rales. No wheezing. Cardiovascular: Regular rate regular rhythm.No murmurs. No rubs were appreciated.S1, S2 normal. Distal pulses are palpable 2+ bilaterally. GI: Abdomen was soft. Nontender. Abdomen distended with tense ascites and posi tive fluid thrill. No pulsatile abdominal masses or bruits. No rebound. No guarding. Bowel sounds were present and normal. Muscle skeletal: Full range of motion of both the upper and lower extremities bilaterally.Normal muscle tone.No assymetrical calf tenderness or swelling. Skin: No petechia, no purpura. No lesions on the palms or the soles of the feet. No maculopapular rash. NEURO: Patient was alert, awake, orientated x3.No facial droop. Gait observed and normal with no ataxia.Speech had regular rate and rhythm. No focal neurological deficits. Result Diagram: 06/30/18 0636 06/30/18 0636 Results 24 hrs Laboratory Tests Test 06/30/18 06:36 White Blood Count 5.3 10^3/ul Red Blood Count 3.17 10^6/ul Hemoglobin 9.2 g/dl Hematocrit 27.6 % Mean Corpuscular Volume 87.1 fl Mean Corpuscular Hemoglobin 29.0 pg Mean Corpuscular Hemoglobin Concent 33.3 g/dl Red Cell Distribution Width 17.9 % Platelet Count 154 10^3/UL Mean Platelet Volume 12.0 fl Immature Granulocytes % 0.200 % Neutrophils % 66.8 % Lymphocytes % 24.2 % Monocytes % 7.1 % Eosinophils % 0.9 % Basophils % 0.8 % Nucleated Red Blood Cells % 0.0 /100WBC Immature Granulocytes # 0.010 10^3/ul Neutrophils # 3.6 10^3/ul Lymphocytes # 1.3 10^3/ul Monocytes # 0.4 10^3/ul Eosinophils # 0.1 10^3/ul Basophils # 0.0 10^3/ul Nucleated Red Blood Cells # 0.0 10^3/ul Prothrombin Time 14.1 Sec Prothrombin Time Ratio 1.1 INR International Normalized Ratio 1.08 Activated Partial Thromboplast Time 30.4 Sec Sodium Level 144 mmol/L Potassium Level 3.9 mmol/L Chloride Level 109 mmol/L Carbon Dioxide Level 23 mmol/L Anion Gap 12 Blood Urea Nitrogen 49 mg/dl Creatinine 2.00 mg/dl Est Glomerular Filtrat Rate mL/min 34 mL/min Glucose Level 109 mg/dl Calcium Level 8.8 mg/dl Total Bilirubin 0.3 mg/dl Direct Bilirubin 0.00 mg/dl Indirect Bilirubin 0.3 mg/dl Aspartate Amino Transf (AST/SGOT) 69 IU/L Alanine Aminotransferase (ALT/SGPT) 30 IU/L Alkaline Phosphatase 125 IU/L Total Protein 6.2 g/dl Albumin 2.8 g/dl Globulin 3.40 g/dl Albumin/Globulin Ratio 0.82 Procedures/MDM This is a 63-year-old male with a known history of liver cirrhosis. The patient presented to the emergency department requesting a therapeutic paracentesis. Ultrasound-guided paracentesis was performed by the psychology tech and the radiologist. The patient a total of 5 L removed. He did not require albumin. His BUN was 49 creatinine was 2 with a normal potassium. I reviewed the patient's previous medical and 3 weeks prior to arrival on June 14, 2018 the patient had ancillary laboratory work performed and his BUN was 22 and creatinin e was 1.31. Therefore today his BUN to creatinine ratio is greater than 20 and I did feel this was likely prerenal secondary to dehydration. The patient was given a gentle fluid bolus of 500 cc of normal saline prior to his paracentesis. He had no evidence of sepsis. He tolerated the procedure well. The patient was discharged home in fair condition. They were instructed to return to the emergency department at any time if there was any worsening of their condition. The patient stated they would follow up with his physician in the next 24-48 hours to initiate a suitable medication regimen under the care of their PCP as well as to allow their PCP to monitor any drug reactions. The patient was discharged home with prescriptions after they gave informed consent to the new medication. They were also fully informed by myself on the adverse effects and adverse drug interactions in order to provide adequate safeguards to prevent possible adverse reactions to medications. Departure Diagnosis: Primary Impression: Ascites due to alcoholic cirrhosis Additional Impression: Prerenal azotemia Condition: GABINO Oropeza MD Jun 30, 2018 07:23
[2018-06-30] MEDS ORDERED: SOD CHLORIDE 0.9% 500 ML IV STA (07:24)
[2018-06-30] MEDS ORDERED: LIDOCAINE 1% (MPF) 5 ML VIAL ONE (08:20)
[2018-06-30 10:16] VITALS: BP 117/61; PULSE 74; RESP 18
== END 2018-06-30 10:18 | disposition home or self-care (01) ==
LOC: E/R 05:39
DX: K70.31 Alcoholic cirrhosis of liver with ascites (principal); R39.2 Extrarenal uremia; F17.210 Nicotine dependence, cigarettes, uncomplicated; I10 Essential (primary) hypertension
CPT/HCPCS: 49083; 80053; 85025; 85610; 85730; J7040; Z7502; Z7610